=== PATIENT | male | born 1965 | race Caucasian/White ===

== ENCOUNTER 2019-10-21 09:10 | Outpatient (CLI) | payer OTHER ==
[~2019-10-21] VITALS: Ht 177.8 cm; Wt 96.3 kg
[~2019-10-21 09:10] MED LIST: ADALAT CC30 MG PO; AMITRIPTYLINE H10 M1 PO; ASPIRIN 32325 MG/TAB PO; CENTRUM SILVER1 TAB PO; CLARITIN 1010 MG/TAB PO; FLEXERIL 1010 MG/TAB PO; HCTZ12.5TAB PO; LIPITOR 40MG TA40 MG PO; NEURONTIN300 MG/CAP PO
[2019-10-21 09:25] VITALS: BP 141/96; PULSE 77
[2019-10-21 10:00] VITALS: BP 120/80; BP 128/80; PULSE 63
--- NOTE | 2019-10-21 10:00 | NUR ---
Pt arrived to room 15,report from Demetrius owen.
[2019-10-21 10:15] VITALS: BP 113/77; PULSE 63
[2019-10-21 10:27] LABS: CSF APPEARANCE CLEAR; CSF COLOR COLORLESS; CSF RBC < 1 /mm3 (0-0)
[2019-10-21 10:30] VITALS: BP 118/78; PULSE 63
[2019-10-21 10:35] LABS: CSF POLYMORPHONUCLEAR 0 % (0-6); GLUCOSE,CSF 62 mg/dL (40-70); TOTAL PROTEIN,CSF 35 mg/dL (15-45)
[2019-10-21 10:36] LABS: CSF MONONUCLEAR 100 % (70-100)
[2019-10-21 10:45] VITALS: BP 117/78; PULSE 68
[2019-10-21 11:00] VITALS: BP 112/79; PULSE 62
--- NOTE | 2019-10-21 11:20 | NUR ---
Discharge instructions given to pt.pt verbalizes understanding.Pt escorted out by this nurse.
== END 2019-10-21 12:39 | disposition home or self-care (01) ==
LOC: COL.RAD 09:10
PROVIDERS: Psychiatry & Neurology Neurology
DX: G37.9 Demyelinating disease of central nervous system, unspecified (principal)

== ENCOUNTER 2019-11-26 08:36 | Outpatient (CLI) | payer OTHER ==
[~2019-11-26] VITALS: Ht 177.8 cm; Wt 99.2 kg
[2019-11-26] MEDS ORDERED: TOPROL XL 25MG25 MG PO (09:10)
[2019-11-26] MEDS ORDERED: [UNRECOGNIZED DRUG - OTHER] PO (09:11)
[2019-11-26] MEDS ORDERED: VIAGRA100 M1 PO (09:12)
[2019-11-26 09:29] VITALS: BP 127/92; PULSE 60; TEMP 98
--- NOTE | 2019-11-26 11:30 | NUR ---
Dr. Ann in to see pt for discharge. Discharge instructions for [facility] given
[2019-11-26 11:35] VITALS: BP 146/84; PULSE 68; TEMP 98
--- NOTE | 2019-11-26 13:19 | NUR ---
Pt came out of room and states very nicely " I think I have waited long enough, how do I get out of here" Pt had been waiting over two hours for discharge from Dr. Ann
== END 2019-11-26 13:19 | disposition home or self-care (01) ==
LOC: COL.CAR 08:36
DX: R55 Syncope and collapse (principal); I10 Essential (primary) hypertension; E78.2 Mixed hyperlipidemia; Z79.82 Long term (current) use of aspirin; Z80.0 Family history of malignant neoplasm of digestive organs; Z86.73 Personal history of transient ischemic attack (TIA), and cerebral infarction without residual deficits; Z20.828 Contact with and (suspected) exposure to other viral communicable diseases